=== PATIENT | female | born 1945 | race Caucasian/White ===

== ENCOUNTER 2021-09-14 15:52 | Emergency (ER) | payer MEDICARE, BC ==
--- NOTE | 2021-09-14 15:57 | ERPHSYRPT ---
- History of Present Illness Time Seen by Provider: 09/14/21 15:56 Source: patient, EMS Exam Limitations: no limitations Physician History: This is an obese 75-year-old white female patient who does not have a family doctor and only takes vitamins and uses inhaler for some breathing issues presents with worsening shortness of breath over the last 2 days. Patient was b rought into the emergency department by ambulance service. Upon arrival to the emergency department, the patient was found to be in atrial fibrillation with RVR with a heart rate in the 150s. Patient denies chest pain. She has not been vomiting. She has not had a cough or fever. She has no abdominal pain. She has no nausea vomiting or diarrhea symptoms. Timing/Duration: today Severity of Dyspnea-Max: moderate Severity of Dyspnea-Current: moderate Possible Cause: no prior episodes Modifying Factors: Improves With: activity (Worsens) Associated Symptoms: weakness, No cough, No chest pain/discomfort, No fever, No wheezing Allergies/Adverse Reactions: Tetracyclines Allergy (Verified 09/14/21 16:12) Home Medications: No Reportable Medications [No Reported Medications] 09/14/21 [History] Travel Risk - International Travel Have you traveled outside of the country in past 3 weeks: No - Coronavirus Screening Are you exhibiting any of the following symptoms?: No Close contact with a COVID-19 positive Pt in past 14-21 Days: No - Review of Systems Constitutional: Weakness Eyes: No Symptoms Ears, Nose, & Throat: No Symptoms Respiratory: Dyspnea Cardiac: Palpitations, No Chest Pain Abdominal/Gastrointestinal: No Symptoms Genitourinary Symptoms: No Symptoms Musculoskeletal: No Symptoms Skin: No Symptoms Neurological: No Symptoms Psychological: No Symptoms Endocrine: No Symptoms Hematologic/Lymphatic: No Symptoms Immunological/Allergic: No Symptoms All Other Systems: Reviewed and Negative - Past Medical History Pertinent Past Medical History: No - Past Surgical History Past Surgical History: No - Nursing Vital Signs Nursing Vital Signs: Initial Vital Signs Temperature 98.7 F 09/14/21 15:54 Pulse Rate 154 H 09/14/21 15:54 Respiratory Rate 20 09/14/21 15:54 Blood Pressure 123/94 09/14/21 15:54 O2 Sat by Pulse Oximetry 94 L 09/14/21 15:54 Pain Scale Pain Intensity 0 - Physical Exam General Appearance: mild distress, alert, anxiety, obese Eye Exam: PERRL/EOMI, eyes nml inspection Ears, Nose, Throat Exam: hearing grossly normal, normal ENT inspection, normal pharynx Neck Exam: normal inspection, non-tender, supple, full range of motion Respiratory Exam: normal breath sounds, lungs clear, airway intact, No chest tenderness, No respiratory distress Cardiovascular/Chest Exam: tachycardia, irregular Abdominal/Gastrointestinal Exam: soft, normal bowel sounds, No tenderness Rectal Exam: not done, tenderness Extremity Exam: non-tender, normal range of motion, normal capillary refill, no calf tenderness, no pedal edema, pelvis stable Neurologic Exam: alert, oriented x 3, cooperative, tableau report developer II-XII nml as tested, normal mood/affect, nml cerebellar function, nml station & gait, sensation nml Skin Exam: normal color, warm, dry Lymphatic Exam: No adenopathy SpO2 Interpretation: borderline oxygenation O2 Delivery: Room Air - Course Nursing assessment & vital signs reviewed: Yes EKG Interpreted by Me: RATE (148), A-fib, Other (Ischemic changes.) Ordered Tests: Active Orders 24 hr Category Date Time Status Healthcare Manager STAT Care 09/14/21 16:12 Active EKG-ER Only STAT Care 09/14/21 16:12 Active EKG-ER Only STAT Care 09/14/21 16:33 Active IV Insertion STAT Care 09/14/21 16:12 Active IV Insertion-2nd Peripheral STAT Care 09/14/21 16:17 Active Oxygen-ED Only Nasal Cannula 2 lpm Care 09/14/21 16:17 Active Pulse Oximetry (ED) STAT Care 09/14/21 16:12 Active CHEST WITH CONTRAST [CT] Stat Exams 09/14/21 17:27 Taken CBC W DIFF Stat Lab 09/14/21 16:10 Completed CMP Stat Lab 09/14/21 16:10 Completed D-DIMER QUANTITATIVE Stat Lab 09/14/21 16:10 Completed MAGNESIUM Stat Lab 09/14/21 16:10 Completed NT PRO BNP Stat Lab 09/14/21 16:10 Completed T4 (Thyroxine) Stat Lab 09/14/21 16:10 Completed TROPONIN Q3H Lab 09/14/21 16:10 Completed TROPONIN Q3H Lab 09/14/21 19:21 Received TROPONIN Q3H Lab 09/14/21 22:15 Ordered TROPONIN Q3H Lab 09/15/21 01:15 Ordered TROPONIN Q3H Lab 09/15/21 04:15 Ordered TSH [TSH, 3RD Generation] Stat Lab 09/14/21 16:10 Completed UA W/RFX CULTURE Stat Lab 09/14/21 Ordered Medication Summary Generic Name Dose Route Start Last Admin Trade Name Freq PRN Reason Stop Dose Admin Diltiazem HCl 100 mls @ 5 mls/hr 09/14/21 16:33 09/14/21 16:38 Cardizem Drip 100 Mg/100 Ml D5w IV 10/14/21 16:32 5 mg/hr .Q20H PRN 5 mls/hr HEART RATE/ A-FIB Administration Protocol 5 MG/HR Sodium Chloride 1,000 mls @ 50 mls/hr 09/14/21 16:45 09/14/21 16:38 Sodium Chloride 0.9% 1000 Ml IV 10/14/21 16:44 50 mls/hr .Q20H CAMMY Administration Discontinued Medications Generic Name Dose Route Start Last Admin Trade Name Freq PRN Reason Stop Dose Admin Diazepam 5 mg 09/14/21 17:41 09/14/21 18:04 Diazepam 10 Mg/2 Ml Disp.Syringe IV 09/14/21 17:42 Not Given STAT ONE Diltiazem HCl 20 mg 09/14/21 16:12 09/14/21 16:19 Diltiazem Hcl Iv 5 Mg/Ml Vial IV 09/14/21 16:13 20 mg STAT ONE Administration Diltiazem HCl Confirm 09/14/21 16:19 Diltiazem Hcl Iv 5 Mg/Ml Vial Administered 09/14/21 16:20 Dose 50 mg IV .STK-MED ONE Enoxaparin Sodium 90 mg 09/14/21 17:58 09/14/21 18:16 Enoxaparin Sodium 120 Mg/0.8 Ml Syringe SQ 09/14/21 17:59 90 mg STAT STA Administration Enoxaparin Sodium Confirm 09/14/21 18:16 Enoxaparin Sodium 120 Mg/0.8 Ml Syringe Administered 09/14/21 18:17 Dose 120 mg SQ .STK-MED ONE Furosemide 40 mg 09/14/21 17:26 09/14/21 18:05 Furosemide 40 Mg/4 Ml Vial IV 09/14/21 17:27 40 mg STAT ONE Administration Furosemide Confirm 09/14/21 18:04 Furosemide 40 Mg/4 Ml Vial Administered 09/14/21 18:05 Dose 40 mg .ROUTE .STK-MED ONE Sodium Chloride Confirm 09/14/21 16:34 Sodium Chloride 0.9% 1000 Ml Administered 09/14/21 16:35 Dose 1,000 mls @ ud .ROUTE .STK-MED ONE Piperacillin Sod/Tazobactam 100 mls @ 200 mls/hr 09/14/21 19:12 09/14/21 19:34 Sod 3.375 gm/ Sodium Chloride IV 09/14/21 19:41 200 mls/hr STAT ONE Administration Sodium Chloride Confirm 09/14/21 19:30 Sodium Chloride 100ml Mini-Bag Plus Administered 09/14/21 19:31 Dose 100 mls @ ud IV .STK-MED ONE Piperacillin Sod/Tazobactam Sod Confirm 09/14/21 19:29 Piperacillin/Tazobactam Sodium 3.375 Gm Vial Administered 09/14/21 19:30 Dose 3.375 gm IV .STK-MED ONE Lab/Rad Data: Laboratory Result Diagrams 09/14/21 16:10 09/14/21 16:10 Laboratory Results 09/14/21 09/14/21 09/14/21 Range/Units 16:55 16:10 16:10 WBC (4.0-10.5) x10^3/uL RBC (4.1-5.4) x10^6/uL Hgb (12.0-16.0) g/dL Hct (35-47) % MCV (78-100) fL MCH (26-32) pg MCHC (32-36) g/dL RDW (11.5-14.0) % Plt Count (150-450) x10^3/uL MPV (7.5-11.0) fL Gran % (36.0-66.0) % Immature Gran % (Auto) (0.00-0.4) % Nucleat RBC Rel Count (0.00-0.1) % Eos # (Auto) (0-0.5) x10^3/uL Immature Gran # (Auto) (0.00-0.03) x10^3u/L Absolute Lymphs (auto) (1.0-4.6) x10^3/uL Absolute Monos (auto) (0.0-1.3) x10^3/uL Absolute Nucleated RBC (0.00-0.01) x10^3u/L Lymphocytes % (24.0-44.0) % Monocytes % (0.0-12.0) % Eosinophils % (0.00-5.0) % Basophils % (0.0-0.4) % Absolute Granulocytes (1.4-6.9) x10^3/uL Basophils # (0-0.4) x10^3/uL D-Dimer (0.0-0.50) mg/L Sodium (137-145) mmol/L Potassium (3.5-5.1) mmol/L Chloride (98-107) mmol/L Carbon Dioxide (22-30) mmol/L Anion Gap (5-15) MEQ/L BUN (7-17) mg/dL Creatinine (0.52-1.04) mg/dL Estimated GFR ML/MIN Glucose (74-106) mg/dL Calcium (8.4-10.2) mg/dL Magnesium (1.6-2.3) mg/dL Total Bilirubin (0.2-1.3) mg/dL AST (14-36) U/L ALT (0-35) U/L Alkaline Phosphatase (38-126) U/L Troponin I < 0.012 (0.000-0.034) ng/mL NT-Pro-B Natriuret Pep (0-900) pg/mL Serum Total Protein (6.3-8.2) g/dL Albumin (3.5-5.0) g/dL Thyroxine (T4) 11.8 H (5.53-10.96) ug/dL TSH 3rd Generation 3.380 (0.47-4.68) mIU/L Influenza Type A Ag NEGATIVE (NEGATIVE) Influenza Type B Ag NEGATIVE (NEGATIVE) RSV (PCR) NEGATIVE (Negative) SARS-CoV-2 (PCR) NEGATIVE (NEGATIVE) 09/14/21 09/14/21 09/14/21 Range/Units 16:10 16:10 16:10 WBC 21.5 H (4.0-10.5) x10^3/uL RBC 5.01 (4.1-5.4) x10^6/uL Hgb 14.5 (12.0-16.0) g/dL Hct 44.8 (35-47) % MCV 89.4 (78-100) fL MCH 28.9 (26-32) pg MCHC 32.4 (32-36) g/dL RDW 13.3 (11.5-14.0) % Plt Count 268 (150-450) x10^3/uL MPV 10.4 (7.5-11.0) fL Gran % 82.4 H (36.0-66.0) % Immature Gran % (Auto) 0.6 H (0.00-0.4) % Nucleat RBC Rel Count 0.0 (0.00-0.1) % Eos # (Auto) 0.05 (0-0.5) x10^3/uL Immature Gran # (Auto) 0.12 H (0.00-0.03) x10^3u/L Absolute Lymphs (auto) 2.24 (1.0-4.6) x10^3/uL Absolute Monos (auto) 1.30 (0.0-1.3) x10^3/uL Absolute Nucleated RBC 0.00 (0.00-0.01) x10^3u/L Lymphocytes % 10.4 L (24.0-44.0) % Monocytes % 6.1 (0.0-12.0) % Eosinophils % 0.2 (0.00-5.0) % Basophils % 0.3 (0.0-0.4) % Absolute Granulocytes 17.69 H (1.4-6.9) x10^3/uL Basophils # 0.06 (0-0.4) x10^3/uL D-Dimer 2.52 H* (0.0-0.50) mg/L Sodium 137 (137-145) mmol/L Potassium 3.7 (3.5-5.1) mmol/L Chloride 102 (98-107) mmol/L Carbon Dioxide 23 (22-30) mmol/L Anion Gap 15.5 H (5-15) MEQ/L BUN 17 (7-17) mg/dL Creatinine 0.74 (0.52-1.04) mg/dL Estimated GFR > 60.0 ML/MIN Glucose 258 H (74-106) mg/dL Calcium 9.7 (8.4-10.2) mg/dL Magnesium 2.0 (1.6-2.3) mg/dL Total Bilirubin 1.50 H (0.2-1.3) mg/dL AST 43 H (14-36) U/L ALT 58 H (0-35) U/L Alkaline Phosphatase 141 H (38-126) U/L Troponin I (0.000-0.034) ng/mL NT-Pro-B Natriuret Pep 2780 H (0-900) pg/mL Serum Total Protein 8.1 (6.3-8.2) g/dL Albumin 4.2 (3.5-5.0) g/dL Thyroxine (T4) (5.53-10.96) ug/dL TSH 3rd Generation (0.47-4.68) mIU/L Influenza Type A Ag (NEGATIVE) Influenza Type B Ag (NEGATIVE) RSV (PCR) (Negative) SARS-CoV-2 (PCR) (NEGATIVE) - Progress Progress: improved Air Movement: good Progress Note: 09/14/21 16:34 Repeat, second, twelve-lead EKG after 20 mg intravenous Cardizem bolus shows rate controlled atrial fibrillation with a heart rate of 102. No acute ischemic changes on second twelve-lead EKG. 09/14/21 19:11 CTA of chest shows masslike enlargement of the esophagus most prominent in the proximal and mid segments concerning for malignancy. 1.9 x 1.4 fluid collection right lateral wall of the esophagus concerning for possible infection or contained perforation extending from the superior mediastinum to the kd. No evidence of acute pulmonary embolus. No evidence of acute pulmonary disease. 09/14/21 19:53 Medical decision making: This patient needs to be at a facility where there is a engraving supervisor and a surgeon that can intervene with the esophageal mass/contained perforation if acutely necessary. We contacted [facility] and I spoke with hospitalist Dr. Swartz. I reviewed the patient history, physical findings, results of EKG, radiographic studies and laboratory results. He accepts the patient for transfer. Blood Culture(s) Obtained: No Antibiotics given: No Counseled pt/family regarding: lab results, diagnosis - Departure Departure Disposition: Transfer Clinical Impression: Atrial fibrillation with RVR, Esophageal mass, Esophageal perforation Condition: Fair Critical Care Time: Yes Critical Care Time(excluding separately billable procedures): Critical 30-74 mins (D minutes) Referrals: DOCTOR,NO FAMILY [Primary Care Provider] - Follow up/PCP as directed
[2021-09-14] MEDS ORDERED: Cardizem IV 50 MG/10 ML IV ONE ×2 (16:12→16:19)
[2021-09-14 16:25] LABS: Absolute Neutrophil Ct (ANC) 17.69 x10^3/uL (1.4-6.9); Basophil (Absolute #) 0.06 x10^3/uL (0-0.4); Eosinophil % 0.2 % (0.00-5.0); Eosinophil (Absolute #) 0.05 x10^3/uL (0-0.5); Hematocrit 44.8 % (35-47); Hemoglobin 14.5 g/dL (12.0-16.0); Lymphocyte (Absolute #) 2.24 x10^3/uL (1.0-4.6); Lymphocytes % 10.4 % (24.0-44.0); Mean Cell Volume 89.4 fL (78-100); Mean Corpuscular Hemoglobin 28.9 pg (26-32); Mean Corpuscular Hgb Concent. 32.4 g/dL (32-36); Mean Platelet Volume 10.4 fL (7.5-11.0); Monocytes % 6.1 % (0.0-12.0); Neutrophil % 82.4 % (36.0-66.0); Platelet Count 268 x10^3/uL (150-450); Red Blood Count 5.01 x10^6/uL (4.1-5.4); Red Cell Distribution Width 13.3 % (11.5-14.0); White Blood Count 21.5 x10^3/uL (4.0-10.5)
[2021-09-14] MEDS ORDERED: CARDIZEM DRIP 100 MG/100 ML D5W 100 ML IV ONE (16:33)
[2021-09-14] MEDS ORDERED: CARDIZEM DRIP 100 MG/100 ML D5W 100 ML IV PRN (16:33)
[2021-09-14] MEDS ORDERED: Sodium Chloride 0.9% 1000 ML 1,000 ML ONE (16:34)
[2021-09-14] MEDS ORDERED: Sodium Chloride 0.9% 1000 ML 1,000 ML IV SCH (16:45)
[2021-09-14 16:52] LABS: ALBUMIN 4.2 g/dL (3.5-5.0); ALKALINE PHOSPHATASE 141 U/L (38-126); ANION GAP 15.5 MEQ/L (5-15); BLOOD UREA NITROGEN 17 mg/dL (7-17); CHLORIDE 102 mmol/L (98-107); Calcium 9.7 mg/dL (8.4-10.2); Carbon Dioxide 23 mmol/L (22-30); Creatinine 1 0.74 mg/dL (0.52-1.04); EST GLOMERULAR FILTRATION RATE > 60.0 ML/MIN; Glucose 258 mg/dL (74-106); NT PRO BNP 2780 pg/mL (0-900); Potassium 3.7 mmol/L (3.5-5.1); SGOT/AST 43 U/L (14-36); SGPT/ALT 58 U/L (0-35); SODIUM 137 mmol/L (137-145); Total Protein 8.1 g/dL (6.3-8.2)
[2021-09-14 17:13] LABS: INFLUENZA A NEGATIVE (NEGATIVE); INFLUENZA B NEGATIVE (NEGATIVE); RESPIRATORY SYNCTIAL VIRUS NEGATIVE (Negative); SARS-CoV-2 Xpert Express NEGATIVE (NEGATIVE)
[2021-09-14 17:15] LABS: T4 (Thyroxine) 11.8 ug/dL (5.53-10.96); TSH, 3RD Generation 3.38 mIU/L (0.47-4.68)
[2021-09-14] MEDS ORDERED: Lasix 40 MG/4 ML IV ONE (17:26)
[2021-09-14] MEDS ORDERED: VALIUM 10 MG/2 ML SYRINGE IV ONE (17:41)
[2021-09-14] MEDS ORDERED: ENOXAPARIN SODIUM SQ STA (17:58)
[2021-09-14] MEDS ORDERED: Lasix 40 MG/4 ML ONE (18:04)
[2021-09-14] MEDS ORDERED: ENOXAPARIN SODIUM SQ ONE (18:16)
[2021-09-14] MEDS ORDERED: PIPERACILLIN/TAZOBACTAM 3.375 GM in Sodium Chloride 100ML MINI-BAG PLUS 100 ML IV ONE (19:12)
[2021-09-14] MEDS ORDERED: PIPERACILLIN/TAZOBACTAM IV ONE (19:29)
[2021-09-14] MEDS ORDERED: Sodium Chloride 100ML MINI-BAG PLUS 100 ML IV ONE (19:30)
[2021-09-14 20:41] LABS: Appearance CLEAR (CLEAR)
[2021-09-14 20:42] LABS: Bilirubin NEGATIVE (NEGATIVE); Dipstick done @ ? MAIN LAB; Glucose NEGATIVE (NEGATIVE); Ketones NEGATIVE (NEGATIVE); Nitrite NEGATIVE (NEGATIVE); Protein,Urine Dip NEGATIVE (Negative); RBC TRACE-INTACT Ery/ul (0-5); Urobilinogen 0.2 mg/dL (0-1)
[2021-09-14 20:55] LABS: Urine Cultured Indicated? NO
[2021-09-14 21:02] VITALS: O2SAT 97
--- NOTE | 2021-09-14 22:44 | XRAY ---
Indication: Short of breath. Elevated d-dimer. Atrial fibrillation. Multiple contiguous images obtained through the chest using 100 cc Isovue-370 contrast and PE protocol. Comparison: None Good opacification of the pulmonary arteries to include the lobar and segmental branches. No pulmonary embolus. Heart not enlarged. Aorta is normal in course and caliber without aneurysm/dissection. No pathologic mediastinal/hilar lymphadenopathy. Esophagus demonstrates diffuse moderate circumferential wall thickening. Esophagus at the level of the kd demonstrates 1.9 x 1.4 cm fluid collection, possibly infectious in etiology versus perforation. Just proximal to this is heterogeneous intraluminal masslike opacity that warrants direct endoscopy. Incidental moderate size hiatal hernia. Lungs demonstrates mild scattered fibrosis/scarring bilaterally and mild right base dependent atelectasis. No suspicious pulmonary mass, infiltrate, effusion, or pneumothorax. Bony thorax intact with osteopenia and mild degenerative changes throughout the spine. Limited upper abdomen demonstrates fatty liver, 3 cm left adrenal adenoma, and cholecystectomy clips. Impression: 1. Negative for pulmonary embolus. 2. Diffusely abnormal esophageal wall thickening. Proximal esophagus demonstrates heterogeneous masslike opacity and small fluid collection better evaluated with direct endoscopy. 3. Incidental fatty liver and left adrenal adenoma. Comment: Preliminary interpretation made by [facility]. No critical discrepancy.
[2021-09-14 22:53] VITALS: BP 125/85; PULSE 96
== END 2021-09-14 22:53 | disposition short-term general hospital (02) ==
LOC: ED 15:52
DX: I48.20 Chronic atrial fibrillation, unspecified (principal); R93.89 Abnormal findings on diagnostic imaging of other specified body structures; K22.3 Perforation of esophagus; R06.02 Shortness of breath; Z20.828 Contact with and (suspected) exposure to other viral communicable diseases
CPT/HCPCS: 0241U; 36000; 36415; 71260; 80053; 81015; 83735; 83880; 84436; 84443; 84484; 85025; 85379; 93005; 93041; 94760; 96372; 96374; 96375; 99285; 99291; J1650; J1940

== ENCOUNTER → 2022-10-24 | Day surgery (SDC) | payer MEDICARE ==
--- NOTE | 2022-10-21 11:45 | HP ---
DATE OF SURGERY: 10/24/2022 HISTORY OF PRESENT ILLNESS: The patient is a 76-year-old female presented with an abscess on her right hip more like a lesion. It is about 1.5 cm. She desires removal. PAST MEDICAL HISTORY: Asthma. PAST SURGICAL HISTORY: Cholecystectomy. Hysterectomy. Appendectomy. ALLERGIES: TETRACYCLINE. MEDICATIONS: Pulmicort. FAMILY HISTORY: Negative. SOCIAL HISTORY: Negative. REVIEW OF SYSTEMS: CONSTITUTIONAL: Denies fever or chills. CHEST: Denies shortness of breath. CVS: Denies chest pain. ABDOMEN: Denies abdominal pain. PHYSICAL EXAMINATION: GENERAL: No acute distress. CHEST: Nonlabored. No shortness of breath. CVS: Regular rate and rhythm. ABDOMEN: Soft. IMPRESSION: Right hip lesion. PLAN: Excision of right hip lesion with Dr. Brayden Levi. As dictated by Dionne Florentino NP.
[~2022-10-24] MED LIST: Xylocaine 1% Vial 30 ML PF IJ ONE
[2022-10-24 09:33] VITALS: BP 140/70; PULSE 67; RESP 16; O2SAT 95
[2022-10-24 09:43] VITALS: TEMP 97.9
--- NOTE | 2022-10-24 10:23 | OP ---
SURGERY DATE/TIME: 10/24/2022 0848 PREOPERATIVE DIAGNOSIS: Recently infected sebaceous cyst of the buttock. POSTOPERATIVE DIAGNOSIS: Inflamed sebaceous cyst of the buttock. PROCEDURE: Excision of a 1.5 cm sebaceous cyst with closure under local right buttock. SURGEON: Brayden Levi M.D. ANESTHESIA: Local. COMPLICATIONS: None. CONDITION: Stable. DESCRIPTION OF PROCEDURE: The patient brought into surgery. Monitor is placed. Routine prep and drape. Time out. Local anesthetic 1% lidocaine. Elliptical skin incision including the pore. A 1.5 cm sebaceous cyst was removed in toto. Hemostasis satisfactory. Closed with subcuticular suture of 4-0 Vicryl, Steri-Strips and dressing. The patient tolerated the procedure satisfactorily. Instructions were given.
== END ==
LOC: SDC 06:23
PROVIDERS: ATTEND Surgery
DX: L72.3 Sebaceous cyst (principal)
CPT/HCPCS: J2001